=== PATIENT | female | born 1970 | race Caucasian/White ===

== ENCOUNTER → 2017-01-24 | Outpatient (REF) | payer OTHER ==
[2017-01-24 19:39] LABS: ANION GAP 6 MEQ/L (8-16); BLOOD UREA NITROGEN 10 MG/DL (7-18); CALCIUM LEVEL 8.3 MG/DL (8.5-10.1); CARBON DIOXIDE LEVEL 27 MEQ/L (21-32); CHLORIDE LEVEL 106 MEQ/L (98-107); CREATININE FOR GFR 0.76 MG/DL (0.55-1.02); GLOMERULAR FILTRATION RATE > 60.0 (>58); GLUCOSE, FASTING 222 MG/DL (70-105); SODIUM LEVEL 139 MEQ/L (136-145)
== END ==
LOC: M SFHCPLAZ 13:03
PROVIDERS: ATTEND Family Medicine
DX: E11.9 Type 2 diabetes mellitus without complications (principal)

== ENCOUNTER → 2017-02-14 | Outpatient (REF) | payer OTHER ==
[2017-02-14 21:25] LABS: ANION GAP 8 MEQ/L (8-16); BLOOD UREA NITROGEN 10 MG/DL (7-18); CALCIUM LEVEL 8.7 MG/DL (8.5-10.1); CARBON DIOXIDE LEVEL 28 MEQ/L (21-32); CHLORIDE LEVEL 103 MEQ/L (98-107); CREATININE FOR GFR 0.77 MG/DL (0.55-1.02); GLOMERULAR FILTRATION RATE > 60.0 (>58); GLUCOSE, FASTING 203 MG/DL (70-105); POTASSIUM SERUM 4.5 MEQ/L (3.5-5.1); SODIUM LEVEL 139 MEQ/L (136-145)
== END ==
LOC: M LAB REF 09:18
PROVIDERS: ATTEND Orthopaedic Surgery
DX: Z01.818 Encounter for other preprocedural examination (principal); E11.9 Type 2 diabetes mellitus without complications

== ENCOUNTER → 2017-10-03 | Outpatient (REF) | payer OTHER | LOC: M LAB REF 18:36 | PROVIDERS: ATTEND Physician Assistant Medical | DX: J02.9 Acute pharyngitis, unspecified (principal) ==

== ENCOUNTER → 2018-01-30 | Outpatient (REF) | payer OTHER | LOC: M SFHCPLAZ 12:31 | DX: E11.9 Type 2 diabetes mellitus without complications (principal); E03.9 Hypothyroidism, unspecified ==

== ENCOUNTER → 2018-02-20 | Outpatient (REF) | payer OTHER ==
[2018-02-20 19:34] LABS: MALB URINE SIEMENS 16.2 MG/L
[2018-02-20 19:43] LABS: FREE T4 1.28 NG/DL (0.76-1.46)
[2018-02-20 20:08] LABS: ESTIMATED AVERAGE GLUCOSE 186 MG/DL (60-110); HEMOGLOBIN A1c 8.1 %
== END ==
LOC: M SFHCADAM 16:52
DX: E03.9 Hypothyroidism, unspecified (principal); E11.9 Type 2 diabetes mellitus without complications
CPT/HCPCS: 84443

== ENCOUNTER → 2018-08-21 | Outpatient (REF) | payer OTHER | LOC: M SFHCPLAZ 14:57 | DX: E11.9 Type 2 diabetes mellitus without complications (principal); E03.9 Hypothyroidism, unspecified ==

== ENCOUNTER → 2018-10-22 | Outpatient (CLI) | payer OTHER ==
--- NOTE | 2018-10-22 15:17 | REP ---
Duplex extremity venous ultrasound: Left lower extremity. History: Lower extremity edema, swelling. Findings: The deep veins are anechoic and fully compressible from the groin to the popliteal fossa in the left lower extremity. Color flow imaging is homogeneous. Spectral Doppler interrogation demonstrates intact respiratory variation in flow and normal manual augmentation of flow. There is no evidence of deep vein thrombosis. Impression: Negative left lower extremity duplex venous ultrasound. No evidence of deep vein thrombosis. Electronically Signed by Joel Ray MD 10/22/2018 03:09 P
== END ==
LOC: M RAD 14:09
PROVIDERS: ATTEND Family Medicine
DX: R60.0 Localized edema (principal)

== ENCOUNTER → 2019-01-21 | Outpatient (REF) | payer OTHER ==
[2019-01-21 20:37] LABS: BASO # 0.1 10^3/uL (0.0-0.2); BASO % 0.9 % (0.0-1.0); EOS # 0.2 10^3/uL (0.0-0.50); EOS % 2.5 % (0.0-3.0); HEMATOCRIT 45.3 % (36.0-47.0); HEMOGLOBIN 15.3 g/dl (12.0-15.5); LYMPH # 2.1 10^3/uL (1.5-4.5); LYMPH % 32.4 % (24.0-44.0); MEAN CORPUSCULAR HEMOGLOBIN 29.8 pg (27.0-33.0); MEAN CORPUSCULAR HGB CONC 33.8 g/dl (32.0-36.5); MEAN CORPUSCULAR VOLUME 88.1 fl (80.0-96.0); MONO # 0.5 10^3/uL (0.0-0.8); MONO % 7.3 % (0.0-5.0); NEUTROPHILS # 3.7 10^3/uL (1.8-7.7); NEUTROPHILS % 56.6 % (36.0-66.0); PLATELET COUNT, AUTOMATED 254 10^3/uL (150-450); RED BLOOD COUNT 5.14 10^6/uL (4.00-5.40); WHITE BLOOD COUNT 6.5 10^3/uL (4.0-10.0)
[2019-01-21 20:41] LABS: ALBUMIN 3.4 GM/DL (3.2-5.2); ALT/SGPT 27 U/L (12-78); BILIRUBIN,TOTAL 0.7 MG/DL (0.2-1.0); BLOOD UREA NITROGEN 14 MG/DL (7-18); CALCIUM LEVEL 8.6 MG/DL (8.5-10.1); CARBON DIOXIDE LEVEL 27 MEQ/L (21-32); CHLORIDE LEVEL 104 MEQ/L (98-107); CHOLESTEROL LEVEL 275 MG/DL (<200); CHOLESTEROL RISK RATIO 7.051 (<5); CREATININE FOR GFR 0.79 MG/DL (0.55-1.30); GLOMERULAR FILTRATION RATE > 60.0 (>58); GLUCOSE, FASTING 296 MG/DL (70-100); HDL CHOLESTEROL 39 MG/DL (>40); LDL CHOLESTEROL 189 MG/DL (<100); NON-HDL-C 236 MG/DL; POTASSIUM SERUM 4.5 MEQ/L (3.5-5.1); SODIUM LEVEL 137 MEQ/L (136-145); TOTAL PROTEIN 6.3 GM/DL (6.4-8.2); TRIGLYCERIDES LEVEL 236 MG/DL (<150)
== END ==
LOC: M LAB REF 14:41
PROVIDERS: ATTEND Internal Medicine Cardiovascular Disease
DX: I10 Essential (primary) hypertension (principal); E78.5 Hyperlipidemia, unspecified; E11.9 Type 2 diabetes mellitus without complications

== ENCOUNTER → 2019-03-09 | Outpatient (REF) | payer OTHER | LOC: M LAB REF 12:39 | PROVIDERS: ATTEND Physician Assistant Medical | DX: J02.9 Acute pharyngitis, unspecified (principal) ==

== ENCOUNTER → 2019-07-10 | Outpatient (REF) | payer OTHER ==
[2019-07-10 20:24] LABS: ALT/SGPT 26 U/L (12-78); BILIRUBIN,TOTAL 0.8 MG/DL (0.2-1.0); BLOOD UREA NITROGEN 7 MG/DL (7-18); CALCIUM LEVEL 8.8 MG/DL (8.5-10.1); CARBON DIOXIDE LEVEL 28 MEQ/L (21-32); CHLORIDE LEVEL 101 MEQ/L (98-107); CHOLESTEROL LEVEL 127 MG/DL (<200); CHOLESTEROL RISK RATIO 3.735 (<5); CREATININE FOR GFR 0.74 MG/DL (0.55-1.30); GLOMERULAR FILTRATION RATE > 60.0 (>58); GLUCOSE, FASTING 347 MG/DL (70-100); HDL CHOLESTEROL 34 MG/DL (>40); LDL CHOLESTEROL 45 MG/DL (<100); NON-HDL-C 93 MG/DL; POTASSIUM SERUM 3.9 MEQ/L (3.5-5.1); SODIUM LEVEL 138 MEQ/L (136-145); TOTAL PROTEIN 5.8 GM/DL (6.4-8.2); TRIGLYCERIDES LEVEL 242 MG/DL (<150)
[2019-07-10 20:36] LABS: HEMOGLOBIN A1c 10.7 %
[2019-07-10 20:45] LABS: MALB URINE SIEMENS 55.6 MG/L; MAU/CREAT RATIO 33.9 MCG/MG (0.0-30.0)
== END ==
LOC: M LAB REF 19:23
PROVIDERS: ATTEND Hospitalist
DX: E11.9 Type 2 diabetes mellitus without complications (principal)

== ENCOUNTER 2019-11-03 16:19 | Emergency (ER) | payer OTHER ==
[~2019-11-03] VITALS: Ht 160 cm; Wt 104.2 kg
[2019-11-03] MEDS ORDERED: SPIR50TA4 (16:28)
[2019-11-03] MEDS ORDERED: LEVO100T5 (16:28)
[2019-11-03] MEDS ORDERED: METF10004 (16:28)
[2019-11-03] MEDS ORDERED: ALBU8.5H (16:28)
[2019-11-03] MEDS ORDERED: METO1TAB87 (16:28)
[2019-11-03] MEDS ORDERED: OZEM2INJ (16:28)
[2019-11-03] MEDS ORDERED: CLOP75TA2 (16:28)
[2019-11-03] MEDS ORDERED: ATOR40TA75 (16:28)
[2019-11-03] MEDS ORDERED: ALL10TAB29 (16:28)
[2019-11-03] MEDS ORDERED: CYCL10TA (16:28)
[2019-11-03] MEDS ORDERED: LORazepam 2 MG/ML VIAL (J2060) IV STA (16:56)
[2019-11-03 17:04] LABS: BASO # 0.1 10^3/uL (0.0-0.2); BASO % 0.6 % (0.0-1.0); EOS # 0.1 10^3/uL (0.0-0.5); EOS % 0.8 % (0.0-3.0); HEMATOCRIT 47.6 % (36.0-47.0); HEMOGLOBIN 16.7 g/dl (12.0-15.5); LYMPH # 2.4 10^3/uL (1.5-5.0); MEAN CORPUSCULAR HEMOGLOBIN 30.5 pg (27.0-33.0); MEAN CORPUSCULAR HGB CONC 35.1 g/dl (32.0-36.5); MEAN CORPUSCULAR VOLUME 86.9 fl (80.0-96.0); MONO # 0.6 10^3/uL (0.0-0.8); MONO % 6.8 % (0.0-5.0); NEUTROPHILS # 5.5 10^3/uL (1.5-8.5); NEUTROPHILS % 63.6 % (36.0-66.0); PLATELET COUNT, AUTOMATED 271 10^3/uL (150-450); RED BLOOD COUNT 5.48 10^6/uL (4.00-5.40); WHITE BLOOD COUNT 8.7 10^3/uL (4.0-10.0)
--- NOTE | 2019-11-03 17:19 | REPVR ---
PROCEDURE INFORMATION: Exam: CT Head Without Contrast Exam date and time: 11/03/2019 5:06 PM Age: 49 years old Clinical indication: Dizziness; Additional info: Dizzy x wks TECHNIQUE: Imaging protocol: Computed tomography of the head without contrast. Radiation optimization: All CT scans at this facility use at least one of these dose optimization techniques: automated exposure control; mA and/or kV adjustment per patient size (includes targeted exams where dose is matched to clinical indication); or iterative reconstruction. COMPARISON: No relevant prior studies available. FINDINGS: Brain: Normal. No hemorrhage. Unremarkable white matter. No mass effect. Ventricles: Normal. No ventriculomegaly. Bones/joints: Unremarkable. No acute fracture. Sinuses: Visualized sinuses are unremarkable. No fluid levels. Mastoid air cells: Visualized mastoid air cells are well aerated. Auditory system: Cerumen demonstrated in the left external auditory canal. Mild thickening of the left tympanic membrane demonstrated. No middle ear effusion. Soft tissues: Unremarkable. IMPRESSION: 1. No acute intracranial abnormalities. 2. Mild thickening of the left tympanic membrane may represent the sequelae of prior otitis media or otitis externa. Electronically signed by: Glenn Cid On 11/03/2019 17:19:03 PM
[2019-11-03] MEDS ORDERED: NS 1,000 ML IV ONE (17:45)
[2019-11-03 17:47] LABS: ALT/SGPT 22 U/L (12-78); BILIRUBIN,DIRECT 0.2 MG/DL (0.0-0.2); BILIRUBIN,TOTAL 0.7 MG/DL (0.2-1.0); BLOOD UREA NITROGEN 11 MG/DL (7-18); CALCIUM LEVEL 8.6 MG/DL (8.5-10.1); CARBON DIOXIDE LEVEL 21 MEQ/L (21-32); CHLORIDE LEVEL 105 MEQ/L (98-107); CK-MB VALUE MASS < 1.0 NG/ML (<3.6); CPK CREATINE PHOSPHOKINASE 131 U/L (26-192); CREATININE FOR GFR 1.05 MG/DL (0.55-1.30); FREE T4 1.38 NG/DL (0.76-1.46); GLOMERULAR FILTRATION RATE 59.8 (>58); GLUCOSE, FASTING 401 MG/DL (70-100); LIPASE 121 U/L (73-393); MB/CK RELATIVE INDEX 0.76 (< OR =4); POTASSIUM SERUM 4.1 MEQ/L (3.5-5.1); SODIUM LEVEL 137 MEQ/L (136-145); TOTAL PROTEIN 6.1 GM/DL (6.4-8.2); TROPONIN I < 0.02 NG/ML (< 0.10)
[2019-11-03 18:21] LABS: HEMOGLOBIN A1c 10.7 %
[2019-11-03 18:35] VITALS: BP 126/58
--- NOTE | 2019-11-03 19:37 | ECGEPIP ---
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
--- NOTE | 2019-11-04 07:04 | REP ---
AP PORTABLE CHEST: 11/03/2019. Clinical history: Chest pain. Findings: No prior study. Lungs are well inflated and clear. The heart, mediastinal and hilar contour are normal. Aorta and airway are intact. No free air under the diaphragm. Bones unremarkable. Impression: 1. No acute cardiopulmonary change. Electronically Signed by Luis Rolon MD 11/04/2019 08:58 A
--- NOTE | 2019-11-06 13:51 | ED PDOC ---
Post-Departure Follow-Up dr beatty faxed formal report of ct heaad for fu Merna Hightower MD Nov 06, 2019 13:51
== END 2019-11-03 18:54 | disposition home or self-care (01) ==
LOC: M ED 16:19
DX: R42 Dizziness and giddiness (principal); I95.1 Orthostatic hypotension; R73.9 Hyperglycemia, unspecified; H73.892 Other specified disorders of tympanic membrane, left ear; R00.0 Tachycardia, unspecified; R94.31 Abnormal electrocardiogram [ECG] [EKG]; Z86.79 Personal history of other diseases of the circulatory system; E78.5 Hyperlipidemia, unspecified; J45.909 Unspecified asthma, uncomplicated; E03.9 Hypothyroidism, unspecified; Z88.0 Allergy status to penicillin; Z79.01 Long term (current) use of anticoagulants; Z79.51 Long term (current) use of inhaled steroids; Z79.84 Long term (current) use of oral hypoglycemic drugs; Z79.890 Hormone replacement therapy; Z79.899 Other long term (current) drug therapy

== ENCOUNTER 2020-03-25 00:49 | Emergency (ER) | payer OTHER, SELFPAY ==
[~2020-03-25] VITALS: Ht 157.5 cm; Wt 107.7 kg
[~2020-03-25 00:49] MED LIST: ALBU8.5H; ATOR40TA75; CETI-24; CLOP75TA2; CYCL-707; LEVO100T5; METF10004; METO1TAB87; OZEM2INJ; SPIR50TA4
[2020-03-25] MEDS ORDERED: KEFL500C17 PO (01:44)
[2020-03-25] MEDS ORDERED: CEPHALEXIN 500 MG CAP PO ONE (01:45)
[2020-03-25 01:52] VITALS: BP 137/74
== END 2020-03-25 01:56 | disposition home or self-care (01) ==
LOC: M ED 00:49
DX: L03.116 Cellulitis of left lower limb (principal); E11.9 Type 2 diabetes mellitus without complications; E78.5 Hyperlipidemia, unspecified; Z79.51 Long term (current) use of inhaled steroids; Z79.84 Long term (current) use of oral hypoglycemic drugs; Z79.899 Other long term (current) drug therapy; Z86.79 Personal history of other diseases of the circulatory system; Z88.1 Allergy status to other antibiotic agents; Z88.8 Allergy status to other drugs, medicaments and biological substances

== ENCOUNTER 2020-08-15 19:39 | Emergency (ER) | payer OTHER ==
[~2020-08-15] VITALS: Ht 157.5 cm; Wt 100.6 kg
[~2020-08-15 19:39] MED LIST changes: +KEFL500C17 PO
[2020-08-15] MEDS ORDERED: ACETAMINOPHEN 325 MG TAB PO ONE (20:45)
[2020-08-15 21:33] VITALS: BP 132/66
--- NOTE | 2020-08-15 21:52 | REPVR ---
PROCEDURE INFORMATION: Exam: US Duplex Left Lower Extremity Veins, Limited Exam date and time: 08/15/2020 9:18 PM Age: 50 years old Clinical indication: Pain; Leg, lower; Left; Additional info: Swelling and pain in the left posterior knee. DVT vs Castillo's cyst TECHNIQUE: Imaging protocol: Real-time Duplex ultrasound of the Left Lower Extremity with 2-D gayle scale, color Doppler flow and spectral waveform analysis with image documentation. Limited exam focused on the left lower extremity veins. COMPARISON: US Duplex, Ext,LOWER veins,unilat 10/22/2018 2:38 PM FINDINGS: Left deep veins: Unremarkable. The common femoral, femoral, and popliteal veins are patent without thrombus. Normal compressibility, augmentation response and Doppler waveforms. Left superficial veins: Unremarkable. Saphenofemoral junction is patent without thrombus. Soft tissues: No left popliteal cyst is seen. IMPRESSION: 1. No deep vein thrombosis in the veins imaged in the left lower extremity. 2. No left popliteal cyst. Electronically signed by: David Blankenship On 08/15/2020 21:52:31 PM
== END 2020-08-15 22:08 | disposition home or self-care (01) ==
LOC: M ED 19:39
DX: M25.562 Pain in left knee (principal); E78.5 Hyperlipidemia, unspecified; E11.9 Type 2 diabetes mellitus without complications; I10 Essential (primary) hypertension; Z88.1 Allergy status to other antibiotic agents; Z88.8 Allergy status to other drugs, medicaments and biological substances

== ENCOUNTER → 2020-08-16 | Outpatient (CLI) | payer OTHER ==
[2020-08-16 17:22] LABS: BASO # 0.1 10^3/uL (0.0-0.2); BASO % 0.3 % (0.0-1.0); EOS % 0.1 % (0.0-3.0); HEMATOCRIT 49.5 % (36.0-47.0); HEMOGLOBIN 16.5 g/dl (12.0-15.5); LYMPH # 2.8 10^3/uL (1.5-5.0); MEAN CORPUSCULAR HEMOGLOBIN 29.7 pg (27.0-33.0); MEAN CORPUSCULAR HGB CONC 33.3 g/dl (32.0-36.5); MEAN CORPUSCULAR VOLUME 89.2 fl (80.0-96.0); MONO # 1.3 10^3/uL (0.0-0.8); MONO % 7.4 % (0.0-5.0); NEUTROPHILS % 75.7 % (36.0-66.0); PLATELET COUNT, AUTOMATED 256 10^3/uL (150-450); RED BLOOD COUNT 5.55 10^6/uL (4.00-5.40); WHITE BLOOD COUNT 17.2 10^3/uL (4.0-10.0)
[2020-08-16 17:34] LABS: ALBUMIN 2.9 GM/DL (3.2-5.2); ALT/SGPT 25 U/L (12-78); BILIRUBIN,TOTAL 1.2 MG/DL (0.2-1.0); BLOOD UREA NITROGEN 12 MG/DL (7-18); CALCIUM LEVEL 9.2 MG/DL (8.5-10.1); CARBON DIOXIDE LEVEL 27 MEQ/L (21-32); CHLORIDE LEVEL 100 MEQ/L (98-107); CREATININE FOR GFR 0.94 MG/DL (0.55-1.30); GLOMERULAR FILTRATION RATE > 60.0 (>58); GLUCOSE, FASTING 347 MG/DL (70-100); POTASSIUM SERUM 4.3 MEQ/L (3.5-5.1); SODIUM LEVEL 133 MEQ/L (136-145); TOTAL PROTEIN 6.3 GM/DL (6.4-8.2)
== END ==
LOC: M WUC 15:25
PROVIDERS: ATTEND Nurse Practitioner Family
DX: L03.116 Cellulitis of left lower limb (principal)

== ENCOUNTER → 2020-08-17 | Outpatient (CLI) | payer OTHER ==
[2020-08-17 13:54] LABS: BASO % 0.3 % (0.0-1.0); EOS # 0.1 10^3/uL (0.0-0.5); EOS % 0.4 % (0.0-3.0); HEMATOCRIT 46.4 % (36.0-47.0); HEMOGLOBIN 15.6 g/dl (12.0-15.5); LYMPH % 15.9 % (24.0-44.0); MEAN CORPUSCULAR HGB CONC 33.6 g/dl (32.0-36.5); MEAN CORPUSCULAR VOLUME 89.2 fl (80.0-96.0); MONO # 0.9 10^3/uL (0.0-0.8); MONO % 7.3 % (0.0-5.0); NEUTROPHILS # 9.5 10^3/uL (1.5-8.5); NEUTROPHILS % 75.6 % (36.0-66.0); PLATELET COUNT, AUTOMATED 245 10^3/uL (150-450); WHITE BLOOD COUNT 12.6 10^3/uL (4.0-10.0)
== END ==
LOC: M WUC 12:43
PROVIDERS: ATTEND Nurse Practitioner Family
DX: L03.116 Cellulitis of left lower limb (principal)

== ENCOUNTER → 2022-03-11 | Outpatient (REF) | payer OTHER | LOC: M SFHCPLAZ 14:48 | PROVIDERS: ATTEND Family Medicine | DX: E11.9 Type 2 diabetes mellitus without complications (principal); E78.2 Mixed hyperlipidemia; E03.9 Hypothyroidism, unspecified ==

== ENCOUNTER → 2022-03-14 | Outpatient (CLI) | payer OTHER ==
[2022-03-14 16:53] LABS: MALB URINE SIEMENS 22.5 MG/L
[2022-03-14 17:00] LABS: CHOLESTEROL RISK RATIO 3.594 (<5); FREE T4 1.19 NG/DL (0.76-1.46); THYROID STIMULATING HORMONE 1.74 uIU/ML (0.358-3.740)
[2022-03-14 18:00] LABS: HEMOGLOBIN A1c 10.1 %
== END ==
LOC: M ADAMS 13:05
PROVIDERS: ATTEND Student in an Organized Health Care Education/Training Program
DX: E11.9 Type 2 diabetes mellitus without complications (principal); E03.9 Hypothyroidism, unspecified; E78.2 Mixed hyperlipidemia

== ENCOUNTER → 2022-03-25 | Outpatient (CLI) | payer OTHER | LOC: M RAD 15:37 | PROVIDERS: ATTEND Student in an Organized Health Care Education/Training Program | DX: M79.89 Other specified soft tissue disorders (principal) ==

== ENCOUNTER → 2022-08-10 | Outpatient (CLI) | payer OTHER ==
[2022-08-10 18:06] LABS: HEMOGLOBIN A1c 9.1 %
[2022-08-10 19:17] LABS: CHOLESTEROL RISK RATIO 3.418 (<5); FREE T4 1.44 NG/DL (0.76-1.46); THYROID STIMULATING HORMONE 0.849 uIU/ML (0.358-3.740)
[2022-08-10 19:18] LABS: MAU/CREAT RATIO 7.2 MCG/MG (0.0-30.0)
== END ==
LOC: M LABDRWAD 13:58
PROVIDERS: ATTEND Student in an Organized Health Care Education/Training Program
DX: E03.9 Hypothyroidism, unspecified (principal); E11.9 Type 2 diabetes mellitus without complications; Z79.890 Hormone replacement therapy

== ENCOUNTER 2023-05-25 05:45 | Emergency (ER) | payer OTHER ==
[~2023-05-25] VITALS: Ht 160 cm; Wt 208.0 kg
[2023-05-25 05:46] VITALS: TEMP 97
[2023-05-25 08:15] LABS: BASO # 0.1 10^3/uL (0.0-0.2); BASO % 0.6 % (0.0-1.0); EOS # 0.2 10^3/uL (0.0-0.5); EOS % 2.6 % (0.0-3.0); HEMATOCRIT 45.6 % (36.0-47.0); HEMOGLOBIN 15.6 g/dl (12.0-15.5); LYMPH # 2.4 10^3/uL (1.5-5.0); LYMPH % 31.4 % (24.0-44.0); MEAN CORPUSCULAR HEMOGLOBIN 29.8 pg (27.0-33.0); MEAN CORPUSCULAR HGB CONC 34.2 g/dl (32.0-36.5); MEAN CORPUSCULAR VOLUME 87.2 fl (80.0-96.0); MONO # 0.7 10^3/uL (0.0-0.8); MONO % 8.4 % (2.0-8.0); NEUTROPHILS # 4.4 10^3/uL (1.5-8.5); NEUTROPHILS % 56.5 % (36.0-66.0); PLATELET COUNT, AUTOMATED 257 10^3/uL (150-450); RED BLOOD COUNT 5.23 10^6/uL (4.00-5.40); WHITE BLOOD COUNT 7.7 10^3/uL (4.0-10.0)
[2023-05-25 08:48] LABS: BLOOD UREA NITROGEN 11 MG/DL (9-23); CALCIUM LEVEL 8.9 MG/DL (8.5-10.1); CARBON DIOXIDE LEVEL 27 MMOL/L (20-31); CHLORIDE LEVEL 102 MMOL/L (98-107); GLOMERULAR FILTRATION RATE > 60.0 (>51); GLUCOSE, FASTING 242 MG/DL (60-100); POTASSIUM SERUM 4.3 MMOL/L (3.5-5.1); SODIUM LEVEL 136 MMOL/L (136-145)
[2023-05-25] MEDS ORDERED: DIFL150T PO (09:31)
[2023-05-25 09:52] VITALS: BP 128/60; O2SAT 97
== END 2023-05-25 10:28 | disposition home or self-care (01) ==
LOC: M ED 05:45
DX: R35.89 Other polyuria (principal); B37.31 Acute candidiasis of vulva and vagina; E11.65 Type 2 diabetes mellitus with hyperglycemia; I10 Essential (primary) hypertension; I25.2 Old myocardial infarction; E78.5 Hyperlipidemia, unspecified; J45.909 Unspecified asthma, uncomplicated; Z79.52 Long term (current) use of systemic steroids; Z79.02 Long term (current) use of antithrombotics/antiplatelets; Z79.4 Long term (current) use of insulin; Z79.899 Other long term (current) drug therapy

== ENCOUNTER → 2023-05-31 | Outpatient (CLI) | payer OTHER ==
[~2023-05-31] MED LIST changes: +DIFL150T PO
== END ==
LOC: M RAD 09:58
PROVIDERS: ATTEND Student in an Organized Health Care Education/Training Program
DX: M79.89 Other specified soft tissue disorders (principal)

== ENCOUNTER → 2023-06-30 | Outpatient (CLI) | payer OTHER | LOC: M RAD 08:26 | PROVIDERS: ATTEND Surgery Vascular Surgery | DX: I87.2 Venous insufficiency (chronic) (peripheral) (principal); I89.0 Lymphedema, not elsewhere classified ==

== ENCOUNTER 2023-07-31 09:50 | Emergency (ER) | payer OTHER ==
[~2023-07-31] VITALS: Ht 160 cm; Wt 98.5 kg
[2023-07-31] MEDS ORDERED: ACET-897 PO (11:38)
[2023-07-31 11:42] VITALS: BP 143/79; TEMP 98.2; O2SAT 97
== END 2023-07-31 11:56 | disposition home or self-care (01) ==
LOC: M ED 09:50
DX: S80.12XA Contusion of left lower leg, initial encounter (principal); W19.XXXA Unspecified fall, initial encounter; M17.12 Unilateral primary osteoarthritis, left knee; M25.562 Pain in left knee; I25.2 Old myocardial infarction; E11.9 Type 2 diabetes mellitus without complications; I10 Essential (primary) hypertension; J45.909 Unspecified asthma, uncomplicated; E03.9 Hypothyroidism, unspecified; Z86.718 Personal history of other venous thrombosis and embolism; Z88.1 Allergy status to other antibiotic agents; Z79.52 Long term (current) use of systemic steroids; Z79.4 Long term (current) use of insulin; Z79.02 Long term (current) use of antithrombotics/antiplatelets; Z79.899 Other long term (current) drug therapy; Z79.01 Long term (current) use of anticoagulants; Y92.9 Unspecified place or not applicable; Y93.9 Activity, unspecified; Y99.9 Unspecified external cause status

== ENCOUNTER 2023-09-06 15:45 | Outpatient (RCR) | payer OTHER ==
[~2023-09-06 15:45] MED LIST changes: +ACET-897 PO
== END 2023-09-07 ==
LOC: M PT 15:45
PROVIDERS: ATTEND Surgery Vascular Surgery
DX: I89.0 Lymphedema, not elsewhere classified (principal)

== ENCOUNTER → 2023-11-07 | Outpatient (REF) | payer OTHER ==
[2023-11-07 20:02] LABS: APPEARANCE, URINE CLEAR (CLEAR); BACTERIA, URINE AUTO NEGATIVE (NEGATIVE); BILIRUBIN, URINE AUTO NEGATIVE (NEGATIVE); BLOOD, URINE BLOOD NEGATIVE (NEGATIVE); COLOR, URINE STRAW (YELLOW); GLUCOSE, URINE (UA) AUTO 3+ mg/dL (NEGATIVE); KETONE, URINE AUTO NEGATIVE (NEGATIVE); LEUKOCYTE ESTERASE, URINE AUTO NEGATIVE (NEGATIVE); MUCUS, URINE SMALL (NEGATIVE); NITRITE, URINE AUTO NEGATIVE (NEGATIVE); PROTEIN, URINE AUTO NEGATIVE (NEGATIVE); RBC, URINE AUTO 0 /HPF (0-3); SPECIFIC GRAVITY URINE AUTO 1.032 (1.002-1.035); SQUAMOUS EPITHELIAL CELL UR AU 0 /HPF (0-6); UROBILINOGEN, URINE AUTO 0.2 mg/dL (0.0-2.0); WBC, URINE AUTO 0 /HPF (0-3)
[2023-11-07 20:03] LABS: BASO % 0.5 % (0.0-1.0); EOS # 0.1 10^3/uL (0.0-0.5); EOS % 2.1 % (0.0-3.0); HEMATOCRIT 44.5 % (36.0-47.0); HEMOGLOBIN 15.1 g/dl (12.0-15.5); LYMPH # 1.7 10^3/uL (1.5-5.0); LYMPH % 30.5 % (24.0-44.0); MEAN CORPUSCULAR HEMOGLOBIN 30.3 pg (27.0-33.0); MEAN CORPUSCULAR HGB CONC 33.9 g/dl (32.0-36.5); MEAN CORPUSCULAR VOLUME 89.4 fl (80.0-96.0); MONO # 0.4 10^3/uL (0.0-0.8); MONO % 6.1 % (2.0-8.0); NEUTROPHILS # 3.5 10^3/uL (1.5-8.5); NEUTROPHILS % 60.6 % (36.0-66.0); PLATELET COUNT, AUTOMATED 204 10^3/uL (150-450); RED BLOOD COUNT 4.98 10^6/uL (4.00-5.40); WHITE BLOOD COUNT 5.7 10^3/uL (4.0-10.0)
[2023-11-07 20:26] LABS: CREATININE, URINE 24.3 MG/DL; MALB URINE SIEMENS < 3.0 MG/L; MAU/CREAT RATIO 12.3 MCG/MG (0.0-30.0)
[2023-11-07 20:30] LABS: FREE T4 1.12 NG/DL (0.89-1.76); THYROID STIMULATING HORMONE 3.245 uIU/ML (0.55-4.78)
[2023-11-07 20:42] LABS: ALBUMIN 2.8 G/DL (3.2-5.2); ALKALINE PHOSPHATASE 113 U/L (46-116); ALT/SGPT 21 U/L (7.0-40); AST/SGOT 11 U/L (<34); BILIRUBIN,TOTAL 0.5 MG/DL (0.3-1.2); BLOOD UREA NITROGEN 11 MG/DL (9-23); CALCIUM LEVEL 8.5 MG/DL (8.5-10.1); CARBON DIOXIDE LEVEL 26 MMOL/L (20-31); CHLORIDE LEVEL 103 MMOL/L (98-107); CHOLESTEROL LEVEL 160 MG/DL (<200); CHOLESTEROL RISK RATIO 4.34 (<5); GLOMERULAR FILTRATION RATE > 60.0 (>51); GLUCOSE, FASTING 573 MG/DL (60-100); HDL CHOLESTEROL 36.8 MG/DL (>40); LDL CHOLESTEROL 58.8 MG/DL (<100); NON-HDL-C 123.2 MG/DL; POTASSIUM SERUM 4.1 MMOL/L (3.5-5.1); SODIUM LEVEL 135 MMOL/L (136-145); TOTAL PROTEIN 5.6 G/DL (5.7-8.2); TRIGLYCERIDES LEVEL 322 MG/DL (<150)
[2023-11-07 20:50] LABS: HEMOGLOBIN A1c 11.8 % (4.0-6.0)
== END ==
LOC: M SFHCADAM 15:25
PROVIDERS: ATTEND Student in an Organized Health Care Education/Training Program
DX: I25.10 Atherosclerotic heart disease of native coronary artery without angina pectoris (principal); I25.83 Coronary atherosclerosis due to lipid rich plaque; E11.9 Type 2 diabetes mellitus without complications; E03.9 Hypothyroidism, unspecified; I87.2 Venous insufficiency (chronic) (peripheral)

== ENCOUNTER → 2024-03-25 | Outpatient (CLI) | payer OTHER ==
[2024-03-25 14:02] LABS: HEMOGLOBIN A1c 10.8 % (4.0-6.0)
[2024-03-25 14:04] LABS: CREATININE, URINE 104.3 MG/DL; MALB URINE SIEMENS < 3.0 MG/L; MAU/CREAT RATIO 2.8 MCG/MG (0.0-30.0)
[2024-03-25 14:04] LABS: ALBUMIN 2.6 G/DL (3.2-5.2); ALKALINE PHOSPHATASE 108 U/L (46-116); ALT/SGPT 22 U/L (7.0-40); AST/SGOT 15 U/L (<34); BILIRUBIN,TOTAL 0.6 MG/DL (0.3-1.2); BLOOD UREA NITROGEN 11 MG/DL (9-23); CALCIUM LEVEL 8.7 MG/DL (8.5-10.1); CARBON DIOXIDE LEVEL 25 MMOL/L (20-31); CHLORIDE LEVEL 107 MMOL/L (98-107); CHOLESTEROL LEVEL 226 MG/DL (<200); CREATININE FOR GFR 0.61 MG/DL (0.55-1.30); GLOMERULAR FILTRATION RATE > 60.0 (>51); GLUCOSE, FASTING 372 MG/DL (60-100); HDL CHOLESTEROL 35.3 MG/DL (>40); LDL CHOLESTEROL 146.3 MG/DL (<100); NON-HDL-C 190.7 MG/DL; POTASSIUM SERUM 4.3 MMOL/L (3.5-5.1); SODIUM LEVEL 139 MMOL/L (136-145); TOTAL PROTEIN 5.4 G/DL (5.7-8.2); TRIGLYCERIDES LEVEL 222 MG/DL (<150)
== END ==
LOC: M RAD 12:27
PROVIDERS: ATTEND Student in an Organized Health Care Education/Training Program
DX: M25.551 Pain in right hip (principal); M25.552 Pain in left hip; E11.40 Type 2 diabetes mellitus with diabetic neuropathy, unspecified

== ENCOUNTER → 2024-06-05 | Outpatient (CLI) | payer OTHER | LOC: M RAD 12:20 | PROVIDERS: ATTEND Student in an Organized Health Care Education/Training Program | DX: M79.601 Pain in right arm (principal) ==

== ENCOUNTER → 2024-06-19 | Outpatient (REF) | LOC: M PLAIMG 15:03 | PROVIDERS: ATTEND Internal Medicine | DX: M25.511 Pain in right shoulder (principal); M25.559 Pain in unspecified hip ==

== ENCOUNTER → 2024-11-07 | Outpatient (REF) | payer OTHER ==
[2024-11-07 18:23] LABS: ALKALINE PHOSPHATASE 101 U/L (35-104); ALT/SGPT 14 U/L (7.0-40); AST/SGOT 12 U/L (<34); BILIRUBIN,TOTAL 0.7 MG/DL (0.3-1.2); BLOOD UREA NITROGEN 14 MG/DL (9-23); CALCIUM LEVEL 8.7 MG/DL (8.5-10.1); CARBON DIOXIDE LEVEL 23 MMOL/L (20-31); CHLORIDE LEVEL 105 MMOL/L (98-107); CHOLESTEROL LEVEL 164 MG/DL (<200); CHOLESTEROL RISK RATIO 4.92 (<5); CREATININE FOR GFR 0.64 MG/DL (0.55-1.30); GLOMERULAR FILTRATION RATE > 60.0 (>51); GLUCOSE, FASTING 226 MG/DL (60-100); HDL CHOLESTEROL 33.3 MG/DL (>40); LDL CHOLESTEROL 92.3 MG/DL (<100); NON-HDL-C 130.7 MG/DL; SODIUM LEVEL 137 MMOL/L (136-145); TRIGLYCERIDES LEVEL 192 MG/DL (<150)
[2024-11-07 18:26] LABS: BASO % 0.4 % (0.0-1.0); EOS # 0.1 10^3/uL (0.0-0.5); EOS % 1.4 % (0.0-3.0); HEMATOCRIT 45.5 % (36.0-47.0); HEMOGLOBIN 16.1 g/dl (12.0-15.5); LYMPH # 2.5 10^3/uL (1.5-5.0); LYMPH % 26.3 % (24.0-44.0); MEAN CORPUSCULAR HEMOGLOBIN 30.5 pg (27.0-33.0); MEAN CORPUSCULAR HGB CONC 35.4 g/dl (32.0-36.5); MEAN CORPUSCULAR VOLUME 86.2 fl (80.0-96.0); MONO # 0.6 10^3/uL (0.0-0.8); MONO % 6.6 % (2.0-8.0); NEUTROPHILS # 6.2 10^3/uL (1.5-8.5); NEUTROPHILS % 65.1 % (36.0-66.0); PLATELET COUNT, AUTOMATED 262 10^3/uL (150-450); RED BLOOD COUNT 5.28 10^6/uL (4.00-5.40); WHITE BLOOD COUNT 9.6 10^3/uL (4.0-10.0)
[2024-11-07 18:30] LABS: FREE T4 1.28 NG/DL (0.89-1.76)
[2024-11-07 18:31] LABS: THYROID STIMULATING HORMONE 2.937 uIU/ML (0.55-4.78)
[2024-11-07 19:05] LABS: HEMOGLOBIN A1c 10.7 % (4.0-6.0)
== END ==
LOC: M SFHCPLAZ 12:55
PROVIDERS: ATTEND Family Medicine
DX: I25.10 Atherosclerotic heart disease of native coronary artery without angina pectoris (principal); Z91.148 Patient's other noncompliance with medication regimen for other reason; E11.65 Type 2 diabetes mellitus with hyperglycemia

== ENCOUNTER → 2024-11-28 | Outpatient (CLI) | payer OTHER | LOC: M PLAIMG 13:44 | PROVIDERS: ATTEND Surgery | DX: R60.0 Localized edema (principal) ==